=== PATIENT | female | born 1935 | race Caucasian/White ===

== ENCOUNTER 2017-07-28 14:15 | Outpatient (RCR) | payer SELFPAY | END 2017-07-29 23:59 | LOC: PR 14:15 | PROVIDERS: Family Provider Family Medicine; PCP Family Medicine; Visit Provider Internal Medicine Critical Care Medicine | DX: Z00.00 Encounter for general adult medical examination without abnormal findings (principal) ==

== ENCOUNTER 2017-08-28 14:15 | Outpatient (RCR) | payer SELFPAY | END 2017-08-28 23:59 | LOC: PR 14:15 | PROVIDERS: Family Provider Family Medicine; PCP Family Medicine; Visit Provider Internal Medicine Critical Care Medicine | DX: Z00.00 Encounter for general adult medical examination without abnormal findings (principal) ==

== ENCOUNTER 2017-09-28 06:00 | Outpatient (RCR) | payer SELFPAY | END 2017-09-28 23:59 | LOC: PR 06:00 | PROVIDERS: Family Provider Family Medicine; PCP Family Medicine; Visit Provider Internal Medicine Critical Care Medicine | DX: Z00.00 Encounter for general adult medical examination without abnormal findings (principal) ==

== ENCOUNTER → 2017-09-28 20:04 | Outpatient (CLI) | payer MEDICARE, SELFPAY | PROVIDERS: Family Provider Family Medicine; PCP Family Medicine; Visit Provider Nurse Practitioner Acute Care | DX: G47.19 Other hypersomnia (principal) | CPT/HCPCS: 95810; 95811 ==

== ENCOUNTER → 2017-10-27 08:41 | Outpatient (CLI) | payer MEDICARE, SELFPAY ==
[2017-10-27 10:52] LABS: ALB/GLOB Ratio 0.8 RATIO (0.9-2.4); AST(SGOT) 22 U/L (15-37); Alanine Aminotransfer ALT/SGPT 21 U/L (13-56); Albumin, Serum 3.2 g/dL (3.2-5.0); Alkaline Phosphatase 90 U/L (45-117); Anion Gap 6 (5-15); BUN 11 mg/dL (7-18); BUN/Creat Ratio 12.4 RATIO (10-20); Calcium,Total 8.8 mg/dL (8.5-10.1); Chloride 109 mmol/L (98-107); Cholesterol 187 mg/dL (200); Creatinine, Serum 0.89 mg/dL (0.55-1.02); EST Glomerular Filtration Rate 65 mL/min (>60); Est Glom Filt Rate - Afr Amer 79 mL/min (>60); Globulin 3.8 g/dL (2.2-4.2); Glucose 100 mg/dL (74-106); High Density Lipoprotein 62 mg/dL; Potassium 3.9 mmol/L (3.5-5.1); Sodium Level 144 mmol/L (136-145); Triglycerides 118 mg/dL; Very Low Density Lipoprotein 24 mg/dL (5-40)
[2017-10-27 10:56] LABS: Vitamin D,25 Hydroxy 46.3 ng/mL (29.95-100.01)
== END ==
PROVIDERS: Family Provider Family Medicine; PCP Family Medicine; Visit Provider Family Medicine
DX: E78.00 Pure hypercholesterolemia, unspecified (principal); E55.9 Vitamin D deficiency, unspecified
CPT/HCPCS: 36415; 80053; 80061; 82306

== ENCOUNTER 2017-10-27 14:15 | Outpatient (RCR) | payer MEDICARE, SELFPAY | END 2017-10-28 23:59 | LOC: PR 14:15 | PROVIDERS: Family Provider Family Medicine; PCP Family Medicine; Visit Provider Internal Medicine Critical Care Medicine | DX: Z00.00 Encounter for general adult medical examination without abnormal findings (principal); E78.00 Pure hypercholesterolemia, unspecified; E55.9 Vitamin D deficiency, unspecified | CPT/HCPCS: 36415; 80053; 80061; 82306 ==

== ENCOUNTER 2017-11-28 06:00 | Outpatient (RCR) | payer MEDICARE, SELFPAY | END 2017-11-28 23:59 | LOC: PR 06:00 | PROVIDERS: Family Provider Family Medicine; PCP Family Medicine; Visit Provider Internal Medicine Critical Care Medicine | DX: Z00.00 Encounter for general adult medical examination without abnormal findings (principal) ==

== ENCOUNTER → 2017-11-29 08:36 | Outpatient (CLI) | payer MEDICARE, SELFPAY ==
[2017-11-29 09:17] VITALS: PULSE 100; PULSE 103; PULSE 111; PULSE 115; PULSE 116; PULSE 117; PULSE 74; PULSE 78; O2SAT 84; O2SAT 89; O2SAT 90; O2SAT 92; O2SAT 97
--- NOTE | 2017-11-29 13:53 | WT_ITS ---
PSN 6 Minute Walk Test - 6 Minute Walk Test 6 Minute Walk Test: 6 Minute Walk Test PSN:6-Minute Walk Test Start: 11/29/17 09: 17 Freq: Status: Active Protocol: RESP.6MINW Document 11/29/17 09:17 SAÚL (Rec: 11/29/17 09:20 [id number]) 6 Minute Walk Test Date Performed 11/29/17 Time Performed 09:00 Height 5 ft 7 in Weight: 190 lb Weight in Pounds 190.[address]: Cornelius Beasley Assistive device used: None Pre-test Oxygen Delivery Method Room Air Pulse Ox (%) 92 Pulse Rate (60-100 beats/min) 74 Dyspnea Megan Scale (0-10) 0 Exertion Megan Scale (6-20) 6 1st minute Oxygen Delivery Method Room Air Pulse Ox (%) 84 Pulse Rate (60-100 beats/min) 100 2nd minute Oxygen Flow Rate (L/min) (L/min) 4 Oxygen Delivery Method Nasal Cannula Pulse Ox (%) 90 Pulse Rate (60-100 beats/min) 103 H 3rd minute Oxygen Flow Rate (L/min) (L/min) 4 Oxygen Delivery Method Nasal Cannula Pulse Ox (%) 90 Pulse Rate (60-100 beats/min) 111 H 4th minute Oxygen Flow Rate (L/min) (L/min) 4 Oxygen Delivery Method Nasal Cannula Pulse Ox (%) 90 Pulse Rate (60-100 beats/min) 115 H 5th minute Oxygen Flow Rate (L/min) (L/min) 4 Oxygen Delivery Method Nasal Cannula Pulse Ox (%) 89 Pulse Rate (60-100 beats/min) 116 H 6th minute Oxygen Flow Rate (L/min) (L/min) 4 Oxygen Delivery Method Nasal Cannula Pulse Ox (%) 90 Pulse Rate (60-100 beats/min) 117 H Dyspnea Megan Scale (0-10) 4 Exertion Megan Scale (6-20) 13 Post-test Oxygen Flow Rate (L/min) (L/min) 4 Oxygen Delivery Method Nasal Cannula Pulse Ox (%) 97 Pulse Rate (60-100 beats/min) 78 Full Laps Walked 16 Partial Lap, Number of Tiles Walked 28 Total Distance Walked (ft) 972 - Interpretation Interpretation: The patient ambulated 972 feet over the course of 6 minutes beginning on room air without assistive devices or breaks. Pretesting oxygen saturation was noted to be 92% on room air. With ambulation, the lanetet oxygen saturation was 84% at minute 1 of testing. 4 L/min of supplemental oxygen was applied and the patient was able to complete the remainder of the test while maintaining oxygen saturations at or above 88%. The patient did develop exertional tachycardia. This testing indicated evidence of significant exertional hypoxemia. - Recommendations Recommendations: 4 L/min of supplemental oxygen should be utilized with exertion.
== END ==
PROVIDERS: Family Provider Family Medicine; PCP Family Medicine; Visit Provider Nurse Practitioner Acute Care
DX: J96.11 Chronic respiratory failure with hypoxia (principal)
CPT/HCPCS: 94618

== ENCOUNTER 2017-12-29 14:15 | Outpatient (RCR) | payer SELFPAY | END 2017-12-29 23:59 | LOC: PR 14:15 | PROVIDERS: Family Provider Family Medicine; PCP Family Medicine; Visit Provider Internal Medicine Critical Care Medicine | DX: Z00.00 Encounter for general adult medical examination without abnormal findings (principal) ==

== ENCOUNTER 2018-01-22 14:15 | Outpatient (RCR) | payer SELFPAY | END 2018-01-28 23:59 | LOC: PR 14:15 | PROVIDERS: Family Provider Family Medicine; PCP Family Medicine; Visit Provider Internal Medicine Critical Care Medicine | DX: Z00.00 Encounter for general adult medical examination without abnormal findings (principal) ==

== ENCOUNTER 2018-01-29 09:21 | Outpatient (RCR) | payer SELFPAY | END 2018-02-28 23:59 | LOC: PR 09:21 | PROVIDERS: Family Provider Family Medicine; PCP Family Medicine; Referring Provider Internal Medicine Critical Care Medicine; Visit Provider Internal Medicine Critical Care Medicine | DX: Z00.00 Encounter for general adult medical examination without abnormal findings (principal) ==

== ENCOUNTER 2018-03-01 06:52 | Outpatient (RCR) | payer SELFPAY | END 2018-03-30 23:59 | LOC: PR 06:52 | PROVIDERS: Family Provider Family Medicine; PCP Family Medicine; Referring Provider Internal Medicine Critical Care Medicine; Visit Provider Internal Medicine Critical Care Medicine | DX: Z00.00 Encounter for general adult medical examination without abnormal findings (principal) ==

== ENCOUNTER 2018-04-30 14:15 | Outpatient (RCR) | payer SELFPAY ==
[2018-03-26 09:37] VITALS: BMI 32.5
[2018-04-02 09:47] VITALS: BMI 32.5
== END 2018-04-30 23:59 ==
LOC: PR 14:15
PROVIDERS: Family Provider Family Medicine; PCP Family Medicine; Referring Provider Internal Medicine Critical Care Medicine; Visit Provider Internal Medicine Critical Care Medicine
DX: Z00.00 Encounter for general adult medical examination without abnormal findings (principal)

== ENCOUNTER 2018-05-25 14:15 | Outpatient (RCR) | payer SELFPAY ==
[2018-04-02 09:47] VITALS: BMI 32.5
== END 2018-05-31 23:59 ==
LOC: PR 14:15
PROVIDERS: Family Provider Family Medicine; PCP Family Medicine; Visit Provider Internal Medicine Critical Care Medicine
DX: Z00.00 Encounter for general adult medical examination without abnormal findings (principal)

== ENCOUNTER 2018-06-04 08:26 | Outpatient (RCR) | payer SELFPAY ==
[2018-04-02 09:47] VITALS: BMI 32.5
== END 2018-06-28 23:59 ==
LOC: PR 08:26
PROVIDERS: Family Provider Family Medicine; PCP Family Medicine; Visit Provider Internal Medicine Critical Care Medicine
DX: Z00.00 Encounter for general adult medical examination without abnormal findings (principal)

== ENCOUNTER → 2018-06-25 12:00 | Outpatient (CLI) | payer MEDICARE, SELFPAY ==
[2018-06-19 09:39] VITALS: BMI 30.7
--- NOTE | 2018-06-25 | LES_PTH ---
PATIENT: MEHNAZ TURCIOS LOC: [facility] U#:[id number] AGE/SX: 89/F ROOM: RE06/25/[address]: Dr. Loy Esteves MD : 1935 BED: DIS: SPEC #: [id number] RECD: 06/25/18 17:47 STATUS: JAYCEE TONIE #: [id number] JUAN: 06/25/18 00:[address]: Loy Esteves DEPT: SURGICAL PATHOLOGY RECD BY: Tab Casas Tissues: Skin of scalp, NOS Procedures: Surgery Specimen Level IV HEADER OPERATION: Shave biopsy PRE-OP DIAGNOSIS: Right scapular lesion (history squamous cell) TISSUE SUBMITTED: Right scapular lesion MICROSCOPIC DIAGNOSIS Right scapular lesion, shave biopsy: Consistent with seborrheic keratosis with actinic keratosis-like features. Negative for malignancy. SJ:jes 06/27/18 MICROSCOPIC DESCRIPTION Slides are reviewed. GROSS DESCRIPTION Received in fixative is one container labeled with the patient's name and designated right scapular lesion. The specimen consists of a shave biopsy of hart-white skin measuring 1 x 1 cm and 0.1 cm in thickness. The skin surface is rough. The specimen is inked and submitted entirely in one cassette. It will be sectioned at the time of embedding. / SJ:jes 06/26/18 TC:5 [facility]: [id number]
== END ==
PROVIDERS: Family Provider Family Medicine; PCP Family Medicine; Referring Provider Family Medicine; Visit Provider Family Medicine
DX: L98.9 Disorder of the skin and subcutaneous tissue, unspecified (principal)
CPT/HCPCS: 88305

== ENCOUNTER 2018-06-29 12:43 | Outpatient (RCR) | payer SELFPAY ==
[2018-06-29 00:27] VITALS: BMI 32.5
== END 2018-07-29 23:59 ==
LOC: PR 12:43
PROVIDERS: Family Provider Family Medicine; PCP Family Medicine; Referring Provider Internal Medicine Critical Care Medicine; Visit Provider Internal Medicine Critical Care Medicine
DX: Z00.00 Encounter for general adult medical examination without abnormal findings (principal)

== ENCOUNTER → 2018-07-05 07:20 | Outpatient (CLI) | payer MEDICARE, SELFPAY ==
[2018-06-29 00:27] VITALS: BMI 32.5
[2018-07-05 10:08] LABS: Hematocrit 43.9 % (37-47); Hemoglobin 13.4 g/dl (12.0-15.0); Mean Corp Hgb Conc 30.5 g/gl (32-36); Mean Corpuscular Hgb 28.9 pg (27.0-32.0); Mean Corpuscular Volume 94.6 fL (81-99); Mean Platelet Vol. 10.8 fl (6.2-12.0); Platelet Count 260 K/mm3 (150-450); RBC Distribution Width CV 14.7 % (11.6-14.6); RBC Distribution Width SD 48.6 fl (35.1-43.9); Red Blood Count 4.64 M/mm3 (4.2-5.4); White Blood Count 5.8 K/mm3 (4.4-11.0)
[2018-07-05 10:13] LABS: Scan Indicated on CBC? Y/N NO
[2018-07-05 10:31] LABS: ALB/GLOB Ratio 0.9 RATIO (0.9-2.4); AST(SGOT) 22 U/L (15-37); Alanine Aminotransfer ALT/SGPT 20 U/L (13-56); Albumin, Serum 3.4 g/dL (3.2-5.0); Alkaline Phosphatase 108 U/L (45-117); Anion Gap 6 (5-15); BUN 14 mg/dL (7-18); BUN/Creat Ratio 15.2 RATIO (10-20); Calcium,Total 9.3 mg/dL (8.5-10.1); Chloride 105 mmol/L (98-107); Cholesterol 193 mg/dL (200); Creatinine, Serum 0.92 mg/dL (0.55-1.02); EST Glomerular Filtration Rate 62 mL/min (>60); Est Glom Filt Rate - Afr Amer 75 mL/min (>60); Globulin 3.8 g/dL (2.2-4.2); Glucose 94 mg/dL (74-106); High Density Lipoprotein 74 mg/dL; Protein, Total 7.2 g/dL (6.4-8.2); Sodium Level 140 mmol/L (136-145); Triglycerides 90 mg/dL; Very Low Density Lipoprotein 18 mg/dL (5-40); Vitamin D,25 Hydroxy 37.6 ng/mL (29.95-100.01)
== END ==
PROVIDERS: Family Provider Family Medicine; PCP Family Medicine; Referring Provider Family Medicine; Visit Provider Family Medicine
DX: E78.00 Pure hypercholesterolemia, unspecified (principal); E55.9 Vitamin D deficiency, unspecified
CPT/HCPCS: 36415; 80053; 80061; 82306; 85027

== ENCOUNTER 2018-07-30 07:08 | Outpatient (RCR) | payer SELFPAY ==
[2018-07-30 00:28] VITALS: BMI 30.7
== END 2018-08-28 23:59 ==
LOC: PR 07:08
PROVIDERS: Family Provider Family Medicine; PCP Family Medicine; Referring Provider Internal Medicine Critical Care Medicine; Visit Provider Internal Medicine Critical Care Medicine
DX: Z00.00 Encounter for general adult medical examination without abnormal findings (principal)

== ENCOUNTER 2018-08-29 07:08 | Outpatient (RCR) | payer SELFPAY | END 2018-09-28 23:59 | LOC: PR 07:08 | PROVIDERS: Family Provider Family Medicine; PCP Family Medicine; Referring Provider Internal Medicine Critical Care Medicine; Visit Provider Internal Medicine Critical Care Medicine | DX: Z00.00 Encounter for general adult medical examination without abnormal findings (principal) ==

== ENCOUNTER 2018-10-01 07:22 | Outpatient (RCR) | payer SELFPAY | END 2018-10-28 23:59 | LOC: PR 07:22 | PROVIDERS: Family Provider Family Medicine; PCP Family Medicine; Referring Provider Internal Medicine Critical Care Medicine; Visit Provider Internal Medicine Critical Care Medicine | DX: Z00.00 Encounter for general adult medical examination without abnormal findings (principal) ==

== ENCOUNTER → 2018-10-19 07:30 | Outpatient (CLI) | payer MEDICARE, SELFPAY ==
[2018-10-19 10:40] LABS: Ferritin 42 ng/mL (8-252); Iron 62 ug/dL (50-170)
[2018-10-19 11:10] LABS: Vitamin B12 599 pg/mL (211-911)
== END ==
PROVIDERS: Family Provider Family Medicine; PCP Family Medicine; Referring Provider Family Medicine; Visit Provider Family Medicine
DX: D64.9 Anemia, unspecified (principal)
CPT/HCPCS: 36415; 82607; 82728; 83540

== ENCOUNTER → 2018-10-25 11:53 | Outpatient (CLI) | payer MEDICARE, SELFPAY ==
[2018-10-25 10:47] VITALS: BMI 30.7
--- NOTE | 2018-10-25 12:00 | RAD_ITS ---
STUDY: X-RAY CHEST REASON FOR EXAM: Female, 83 years old. TECHNIQUE: 2 views COMPARISON: September 02, 2015 FINDINGS: The lungs are clear and hyperinflated. There is no demonstrated pleural abnormality. No pneumothorax Normal size heart. Normal mediastinum and jr. Normal visualized pulmonary arteries. Mild tortuosity of the thoracic aorta Normal visualized thoracic spine. Normal visualized ribs, clavicles, and shoulders. There is no demonstrated abnormality of the visualized soft tissue structures of the upper abdomen. RAD/Chest PA and Lateral IMPRESSION: Negative for intrathoracic active disease with hyperinflated lungs. Electronically Signed: Adrianna Moon, at 13:09 EDT Tel , Service support ,
== END ==
PROVIDERS: Family Provider Family Medicine; PCP Family Medicine; Referring Provider Nurse Practitioner Acute Care; Visit Provider Nurse Practitioner Acute Care
DX: J44.9 Chronic obstructive pulmonary disease, unspecified (principal)
CPT/HCPCS: 71046

== ENCOUNTER → 2018-10-30 08:49 | Outpatient (CLI) | payer MEDICARE, SELFPAY ==
[2018-10-25 10:47] VITALS: BMI 30.7
--- NOTE | 2018-10-30 13:04 | PFT ---
INTRODUCTION: The patient is an 83-year-old female that presents for pulmonary function studies secondary to a diagnosis of COPD. Respiratory therapy reports good patient effort. Bronchodilators were used during testing. INTERPRETATION: Forced expiration spirometry demonstrates the presence of a severe large airways obstructive ventilatory defect. There was a partial, albeit nonsignificant, response to aerosolized bronchodilators. Spirograms are of good quality and do not plateau indicating slow emptying of the lungs. Body plus tomography was performed and revealed an elevated TLC and RV, indicative of underlying hyperinflation and air trapping. Diffusing capacity by single breath CO is reduced at 39% of predicted. IMPRESSION: Irreversible severe large airways obstructive ventilatory defect with associated hyperinflation, air trapping and symmetric reduction in diffusing capacity.
== END ==
PROVIDERS: Family Provider Family Medicine; PCP Family Medicine; Referring Provider Nurse Practitioner Acute Care; Visit Provider Nurse Practitioner Acute Care
DX: J44.9 Chronic obstructive pulmonary disease, unspecified (principal)
CPT/HCPCS: 94060; 94726; 94729

== ENCOUNTER → 2018-11-20 08:13 | Outpatient (CLI) | payer MEDICARE, SELFPAY ==
[2018-10-25 10:47] VITALS: BMI 30.7
[2018-11-20 10:40] VITALS: PULSE 100; PULSE 107; PULSE 110; PULSE 117; PULSE 119; PULSE 80; PULSE 95; O2SAT 88; O2SAT 91; O2SAT 93; O2SAT 97
--- NOTE | 2018-11-20 10:50 | CPS ---
She came in on 4 LPM O2 took off and started on room Air but at one min SPO2 88% put on 4 LPM the rest of test. FR.
--- NOTE | 2018-11-20 13:12 | PCM.PSN.6M ---
PSN 6 Minute Walk Test - 6 Minute Walk Test 6 Minute Walk Test: 6 Minute Walk Test PSN:6-Minute Walk Test Start: 11/20/18 10:39 Freq: Status: Active Protocol: RESP.6MINW Document 11/20/18 10:40 FR (Rec: 11/20/18 10:52 FR [id number]) 6 Minute Walk Test Date Performed 11/20/18 Time Performed 09:00 Height 5 ft 7 in Weight: 84.822 kg Weight in Pounds 187.[address]: Asif Assistive device used: None Pre-test Oxygen Delivery Method Room Air Pulse Ox (%) 93 Pulse Rate (60-100 beats/min) 80 Dyspnea Megan Scale (0-10) 0 Exertion Megan Scale (6-20) 6 1st minute Oxygen Delivery Method Room Air Pulse Ox (%) 88 Pulse Rate (60-100 beats/min) 107 H 2nd minute Oxygen Flow Rate (L/min) (L/min) 4 Oxygen Delivery Method Nasal Cannula Pulse Ox (%) 93 Pulse Rate (60-100 beats/min) 100 3rd minute Oxygen Flow Rate (L/min) (L/min) 4 Oxygen Delivery Method Nasal Cannula Pulse Ox (%) 91 Pulse Rate (60-100 beats/min) 110 H 4th minute Oxygen Flow Rate (L/min) (L/min) 4 Oxygen Delivery Method Nasal Cannula Pulse Ox (%) 91 Pulse Rate (60-100 beats/min) 117 H 5th minute Oxygen Flow Rate (L/min) (L/min) 4 Oxygen Delivery Method Nasal Cannula Pulse Ox (%) 91 Pulse Rate (60-100 beats/min) 119 H Number of Rests Taken 1 6th minute Oxygen Flow Rate (L/min) (L/min) 4 Oxygen Delivery Method Nasal Cannula Pulse Ox (%) 91 Pulse Rate (60-100 beats/min) 117 H Dyspnea Megan Scale (0-10) 8 Exertion Megan Scale (6-20) 14 Post-test Oxygen Flow Rate (L/min) (L/min) 4 Oxygen Delivery Method Nasal Cannula Pulse Ox (%) 97 Pulse Rate (60-100 beats/min) 95 Full Laps Walked 13 Partial Lap, Number of Tiles Walked 49 Total Distance Walked (ft) 816 11/20/18 10:50 Cardiopulmonary Services by Jessica Asencio She came in on 4 LPM O2 took off and started on room Air but at one min SPO2 88% put on 4 LPM the rest of test. FR. Initialized on 11/20/18 10:50 - END OF NOTE - Interpretation Interpretation: The patient was noted to be 93% on room air. However, patient desaturated in the first minute to 88%. Patient was placed on 4 L nasal cannula and was able to maintain saturations in acceptable range throughout ambulation. Patient did have a peak heart rate of 119 bpm. In total, patient was able to ambulate 816 feet over the course of 6 minutes with one break and no assistive devices. These findings are consistent with a respiratory limitation exercise tolerance. - Recommendations Recommendations: The patient requires no supplemental oxygen at rest, but should be using 4 L nasal cannula oxygen with any exertion.
== END ==
PROVIDERS: Family Provider Family Medicine; PCP Family Medicine; Referring Provider Nurse Practitioner Acute Care; Visit Provider Nurse Practitioner Acute Care
DX: J44.9 Chronic obstructive pulmonary disease, unspecified (principal)
CPT/HCPCS: 94618

== ENCOUNTER 2019-01-29 06:34 | Outpatient (RCR) | payer SELFPAY ==
[2018-10-25 10:47] VITALS: BMI 30.7
[2018-11-23 11:02] VITALS: BMI 30.7
== END 2019-02-28 23:59 ==
LOC: PR 06:34
PROVIDERS: Family Provider Family Medicine; PCP Family Medicine; Referring Provider Internal Medicine Critical Care Medicine; Visit Provider Internal Medicine Critical Care Medicine
DX: Z00.00 Encounter for general adult medical examination without abnormal findings (principal)

== ENCOUNTER → 2019-02-11 07:42 | Outpatient (CLI) | payer MEDICARE, SELFPAY ==
[2018-11-23 11:02] VITALS: BMI 30.7
[2019-02-11 10:37] LABS: Anion Gap 5 (5-15); BUN 15 mg/dL (7-18); BUN/Creat Ratio 16.4 RATIO (10-20); Calcium,Total 9.1 mg/dL (8.5-10.1); Chloride 107 mmol/L (98-107); Creatinine, Serum 0.92 mg/dL (0.55-1.02); EST Glomerular Filtration Rate 62 mL/min (>60); Est Glom Filt Rate - Afr Amer 76 mL/min (>60); Glucose 108 mg/dL (74-106); Potassium 3.9 mmol/L (3.5-5.1); Sodium Level 141 mmol/L (136-145)
[2019-02-11 10:41] LABS: Vitamin D,25 Hydroxy 39.5 ng/mL (29.95-100.01)
== END ==
PROVIDERS: Family Provider Family Medicine; PCP Family Medicine; Referring Provider Family Medicine; Visit Provider Family Medicine
DX: E78.00 Pure hypercholesterolemia, unspecified (principal); E55.9 Vitamin D deficiency, unspecified
CPT/HCPCS: 36415; 80048; 82306

== ENCOUNTER → 2019-02-18 11:29 | Outpatient (CLI) | payer MEDICARE, SELFPAY ==
[2018-11-23 11:02] VITALS: BMI 30.7
== END ==
PROVIDERS: Family Provider Family Medicine; PCP Family Medicine; Referring Provider Family Medicine; Visit Provider Family Medicine
DX: R35.0 Frequency of micturition (principal)
CPT/HCPCS: 87077; 87086; 87088; 87186

== ENCOUNTER → 2019-06-27 09:43 | Outpatient (CLI) | payer MEDICARE, SELFPAY ==
[2019-02-27 09:46] VITALS: BMI 29.7
[2019-06-27 12:27] LABS: Hematocrit 46.1 % (37-47); Hemoglobin 14.4 g/dL (12.0-15.0); Mean Corp Hgb Conc 31.2 g/dL (32-36); Mean Corpuscular Hgb 29.5 pg (27.0-32.0); Mean Corpuscular Volume 94.5 fL (81-99); Mean Platelet Vol. 10.6 fl (6.2-12.0); Platelet Count 273 K/mm3 (150-450); RBC Distribution Width CV 14.2 % (11.6-14.6); Red Blood Count 4.88 M/mm3 (4.2-5.4); White Blood Count 5.8 K/mm3 (4.4-11.0)
[2019-06-27 12:57] LABS: Vitamin D,25 Hydroxy 48.3 ng/mL
[2019-06-27 13:21] LABS: ALB/GLOB Ratio 0.8 RATIO (0.9-2.4); AST(SGOT) 18 U/L (15-37); Alanine Aminotransfer ALT/SGPT 23 U/L (13-56); Albumin, Serum 3.5 g/dL (3.2-5.0); Alkaline Phosphatase 89 U/L (45-117); Anion Gap 6 (5-15); BUN 15 mg/dL (7-18); BUN/Creat Ratio 14.6 RATIO (10-20); CRP 4.15 mg/L (0.0-3.0); Calcium,Total 9.4 mg/dL (8.5-10.1); Chloride 104 mmol/L (98-107); Cholesterol 217 mg/dL (200); Creatinine, Serum 1.03 mg/dL (0.55-1.02); EST Glomerular Filtration Rate 55 mL/min (>60); Est Glom Filt Rate - Afr Amer 66 mL/min (>60); Globulin 4.2 g/dL (2.2-4.2); Glucose 98 mg/dL (74-106); High Density Lipoprotein 82 mg/dL; Potassium 4.1 mmol/L (3.5-5.1); Protein, Total 7.7 g/dL (6.4-8.2); Sodium Level 139 mmol/L (136-145); Thyroid Stim Hormone (TSH) 4.56 uIU/mL (0.358-3.74); Triglycerides 93 mg/dL; Very Low Density Lipoprotein 19 mg/dL (5-40)
[2019-06-28 12:11] LABS: Free T3 2.8 pg/mL (2.18-3.98); T4 Free Direct 0.87 ng/dL (0.76-1.46)
== END ==
PROVIDERS: PCP Family Medicine; Referring Provider Family Medicine; Visit Provider Family Medicine
DX: D64.9 Anemia, unspecified (principal); E55.9 Vitamin D deficiency, unspecified; E78.00 Pure hypercholesterolemia, unspecified; R79.82 Elevated C-reactive protein (CRP); R73.01 Impaired fasting glucose
CPT/HCPCS: 36415; 80053; 80061; 82306; 84439; 84443; 84481; 85027; 86140

== ENCOUNTER → 2019-10-18 08:36 | Outpatient (CLI) | payer MEDICARE, SELFPAY ==
[2019-08-21 09:25] VITALS: BMI 29.7
== END ==
PROVIDERS: PCP Family Medicine; Visit Provider Family Medicine
DX: Z00.00 Encounter for general adult medical examination without abnormal findings (principal)

== ENCOUNTER → 2019-10-24 09:56 | Outpatient (CLI) | payer MEDICARE, SELFPAY ==
[2019-08-21 09:25] VITALS: BMI 29.7
[2019-10-24 12:52] LABS: T4 Free Direct 0.83 ng/dL (0.76-1.46); Thyroid Stim Hormone (TSH) 5.29 uIU/mL (0.358-3.74)
== END ==
PROVIDERS: PCP Family Medicine; Referring Provider Family Medicine; Visit Provider Family Medicine
DX: R79.89 Other specified abnormal findings of blood chemistry (principal); E78.00 Pure hypercholesterolemia, unspecified
CPT/HCPCS: 36415; 84439; 84443

== ENCOUNTER → 2019-11-25 09:42 | Outpatient (CLI) | payer OTHER, SELFPAY ==
[2019-08-21 09:25] VITALS: BMI 29.7
--- NOTE | 2019-11-25 09:50 | RAD_ITS ---
STUDY: X-RAY - LEFT SHOULDER REASON FOR EXAM: Left rotator cuff strain. TECHNIQUE: 4 view(s) of the shoulder. COMPARISON: None. FINDINGS: Normal glenohumeral articulation. There is acromioclavicular arthrosis. Normal acromion. Normal humeral head and visualized proximal humerus. The soft tissue structures are unremarkable. Normal visualized pulmonary apex. RAD/Shoulder min 2 Views IMPRESSION: Acromioclavicular arthrosis. Electronically Signed: Jovan Brian MD at 13:22 EDT Tel , Service support ,
--- NOTE | 2019-11-25 09:50 | RAD_ITS ---
STUDY: X-RAY - CERVICAL SPINE REASON FOR EXAM: Female, 84 years old. Left rotator cuff strain. TECHNIQUE: 5 view(s) of the cervical spine were obtained. COMPARISON: None FINDINGS: There are degenerative changes of the anterior atlantoaxial articulation. Normal odontoid process. Normal cervical lordosis. There is multi-level endplate spondylosis. There is multi-level degenerative disc disease with multilevel disc space narrowing. There is multilevel neural foraminal narrowing bilaterally. There is no evidence of acute fracture or loss of vertebral axial height. There is maintenance of normal alignment. The soft tissue structures are unremarkable. RAD/Cerv Spine 4 or 5 Views IMPRESSION: Degenerative changes of the cervical spine without acute fracture or subluxation. Electronically Signed: Perez Perez DO at 17:26 EDT Tel [phone], Service support ,
== END ==
PROVIDERS: PCP Family Medicine; Referring Provider Family Medicine; Visit Provider Family Medicine
DX: S46.012A Strain of muscle(s) and tendon(s) of the rotator cuff of left shoulder, initial encounter (principal)
CPT/HCPCS: 72050; 73030

== ENCOUNTER → 2019-11-27 10:46 | Outpatient (CLI) | payer MEDICARE, SELFPAY ==
[2019-08-21 09:25] VITALS: BMI 29.7
[2019-11-27 11:34] VITALS: PULSE 102; PULSE 103; PULSE 104; PULSE 107; PULSE 111; PULSE 80; PULSE 90; PULSE 95; O2SAT 86; O2SAT 92; O2SAT 93; O2SAT 95; O2SAT 96
--- NOTE | 2019-11-27 11:36 | CPS ---
Patient wears 4-5 lpm oxygen at home, pulse dose and continuous. Patient stated she does not always need it when she is sitting. SpO2 93% on room air for 10 minutes while sitting. Started testing on room air. SpO2 at 1st minute was 86%. Patient placed on home O2 tank at 4 lpm pulse dose. Patient recovered quickly to 92%. Patient walked the remainder of the test without breaks.
--- NOTE | 2019-11-28 12:20 | PCM.PSN.6M ---
PSN 6 Minute Walk Test - 6 Minute Walk Test 6 Minute Walk Test: 6 Minute Walk Test PSN:6-Minute Walk Test Start: 11/27/19 11:33 Freq: Status: Active Protocol: RESP.6MINW Document 11/27/19 11:34 SAÚL (Rec: 11/27/19 11:39 [id number]) 6 Minute Walk Test Date Performed 11/27/19 Time Performed 11:00 Height 5 ft 7 in Weight: 177 lb Weight in Pounds 177.[address]: Cornelius Beasley Assistive device used: None Pre-test Oxygen Delivery Method Room Air Pulse Ox (%) 93 Pulse Rate (60-100 beats/min) 80 Dyspnea Megan Scale (0-10) 0 Exertion Megan Scale (6-20) 6 1st minute Oxygen Delivery Method Room Air Pulse Ox (%) 86 Pulse Rate (60-100 beats/min) 102 H 2nd minute Oxygen Flow Rate (L/min) (L/min) 4 Oxygen Delivery Method Nasal Cannula Pulse Ox (%) 95 Pulse Rate (60-100 beats/min) 95 3rd minute Oxygen Flow Rate (L/min) (L/min) 4 Oxygen Delivery Method Nasal Cannula Pulse Ox (%) 93 Pulse Rate (60-100 beats/min) 103 H 4th minute Oxygen Flow Rate (L/min) (L/min) 4 Oxygen Delivery Method Nasal Cannula Pulse Ox (%) 93 Pulse Rate (60-100 beats/min) 104 H 5th minute Oxygen Flow Rate (L/min) (L/min) 4 Oxygen Delivery Method Nasal Cannula Pulse Ox (%) 92 Pulse Rate (60-100 beats/min) 107 H 6th minute Oxygen Flow Rate (L/min) (L/min) 4 Oxygen Delivery Method Nasal Cannula Pulse Ox (%) 92 Pulse Rate (60-100 beats/min) 111 H Dyspnea Megan Scale (0-10) 4 Exertion Megan Scale (6-20) 14 Post-test Oxygen Flow Rate (L/min) (L/min) 4 Oxygen Delivery Method Nasal Cannula Pulse Ox (%) 96 Pulse Rate (60-100 beats/min) 90 Full Laps Walked 14 Partial Lap, Number of Tiles Walked 20 Total Distance Walked (ft) 846 11/27/19 11:36 Cardiopulmonary Services by Cris Gentile Patient wears 4-5 lpm oxygen at home, pulse dose and continuous. Patient stated she does not always need it when she is sitting. SpO2 93% on room air for 10 minutes while sitting. Started testing on room air. SpO2 at 1st minute was 86%. Patient placed on home O2 tank at 4 lpm pulse dose. Patient recovered quickly to 92%. Patient walked the remainder of the test without breaks. Initialized on 11/27/19 11:36 - END OF NOTE - Interpretation Interpretation: The patient ambulated 846 feet over the course of 6 minutes beginning on room air without assistive devices or breaks. Pretesting oxygen saturation was noted to be 93% on room air. With ambulation, the lanette oxygen saturation was 86%. The patient was placed on 4 L/min of pulse dose supplemental oxygen. She was able to complete the remainder of the test while maintaining appropriate oxygen saturations. - Recommendations Recommendations: 4 L/min of pulse dose supplemental oxygen should be utilized with exertion.
== END ==
PROVIDERS: PCP Family Medicine; Referring Provider Internal Medicine Critical Care Medicine; Visit Provider Internal Medicine Critical Care Medicine
DX: J96.11 Chronic respiratory failure with hypoxia (principal); J44.9 Chronic obstructive pulmonary disease, unspecified
CPT/HCPCS: 94618

== ENCOUNTER 2019-12-26 11:00 | Outpatient (RCR) | payer MEDICARE, SELFPAY ==
[2019-08-21 09:25] VITALS: BMI 29.7
--- NOTE | 2019-11-29 08:31 | HP.PTEVAL_ITS ---
Patient's Visit Information MEHNAZ TURCIOS is a 84 year old F referred to Physical Therapy by Dr. 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 Date of Evaluation: 11/29/19 Physical Therapist: Derian Martinez, PT, Cert MDT, OCS - Visit Plan Frequency: 2x /Week Duration: 4 Weeks Plan: PT INTERVENTIONS CERVICAL ROM/POSTURAL EX'S,MODALDITIES,MANAUL THERAPY CRVICAL TRACTION/STM - Subjective This 84 y/o female presents to physical therapy with cervical DDD with symptoms in left arm. Patient as symptoms in neck and arm for 2months . Patient initally seen DR did some ex's ,but conts pin/needles and parathesia arms to fingers thumb and and 1st and fingers. Patient had x-rays showed DDD. Aggraveting factors standing ,uses arm occassionally lay down. Alleviating factors exercise and MEDS. Patient symptoms affects sleeping. Patient unable to sleep. Patient denies ROY/dizziness/tinnitus. Patient condition afffects ADL's and housework tasks.Symptoms affect QOL. Patient uses 4 L02 continous. SOCAIL: . VOCATION: retired - Pain Bilateral Neck Pain Intensity (Out of 10): 3 Pain Intensity Range: 10 - Objective POSTURE: foward head rounded shoulders. NEURO: c/o parathesia/tingling C5- 6,reflexes C5-6-7 1/. PALPATION: tender left UT/levator/scalanes. AROM: BUE WFL. MMT: 4/5 ,shoulder 4-/5. CERVICAL ROM: cervical ROM rotation mod loss,lateral flexion mod loss,extension mod loss,flexion min loss - Special Tests C/S Radiculapathy - Left Upper limb tension test: Negative C/S Radiculapathy - Right Upper limb tension test: Negative C/S Radiculapathy - Left Spurlings: Positive C/S Radiculapathy - Right Spurlings: Positive C/S Radiculapathy - Left Cervical distraction: Negative C/S Radiculapathy - Right Cervical distraction: Negative - Goals Goal 1:: Patient to be I with HEP Goal Time Frame: 4-6 Weeks Goal 2:: Patient to decrease symptoms in arm by 50% or > to improve function. Goal Time Frame: 4-6 Weeks Goal 3:: Patient to improve cervical ROM function of recovery Goal Time Frame: 4-6 Weeks Goal 4:: Patient improve neck owestry score by 5 points or> to improve QOL. 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 in with parathesia tingling with decrease ROM cervical spine,decrease sleep,ADLS thus benifit from skilled PT Rehabilitation Potential: Good - Anticipated Interventions Patient/Client Instruction: Educate patient on: Condition, Plan of Care For the Purpose of:: To decrease pain, To increase ROM, To improve muscle performance and motor function, To improve ability to perform ADL's, To increase tolerance to activity/condition/position, To improve ability of physical actions for home/community/work/leisure, To improve health of tissue, To decrease soft tissue restriction, To increase flexibility/ROM, To improve ability to perform tasks related to life management Therapeutic Exercise to Include: Strength training, Postural training, Flexibilty training, Active ROM For the Purpose of:: To decrease pain, To increase ROM, To improve muscle performance and motor function, To improve ability to perform ADL's, To increase tolerance to activity/condition/position, To decrease level of supervision to perform tasks, To improve health of tissue, To decrease soft tissue restriction, To increase flexibility/ROM, To improve ability to perform tasks related to life management TENS: Yes IF ES: Yes Cryotherapy (ice pack, ice massage): Yes Thermo therapy (hot pack): Yes Ultrasound (thermal/non thermal): Yes For the Purpose of:: To decrease pain, To decrease swelling/inflammation, To improve nutrient delivery to tissue, To increase oxygenation perfusion, To improve health of tissue, To decrease soft tissue restriction Thank you for the opportunity to evaluate your patient. For Medicare and Medicare HMO plans, please review the plan of care and approve it. It will need to be FAXED BACK to us at [phone] for Medicare purposes. For Medicare only, by signing this I certify the plan of care. Please let me know if there are questions or concerns regarding this plan of care. Physician Signature: Date:
--- NOTE | 2019-12-26 11:35 | HP.PTDCSUM ---
It has been my pleasure to treat MEHNAZ TURCIOS referred by Dr. Sarwat Esteves MD, with the diagnosis of CERVICAL DDD AND PARATHESIA LEFT ARM C5 for a total of 9 visit(s). Discharge Date: 12/26/19 Please see the following information for a summary of their discharge status. Subjective: Doing well..Return to all ADL'S. No symptoms in arms with increase with ROM with improvced flexablity Bilateral Neck Pain Intensity (Out of 10): 0 % Improvement: 90 Objective/Function: CERVICAL ROM: FLEXION /ROTATION/LF MIN LOSS. MMT: 4/5 EXCEPT SHOULDERS 4-/5. SPURLING - to left Goal 1:: Patient to be I with HEP Goal Progress: Goal Met Goal 2:: Patient to decrease symptoms in arm by 50% or > to improve function. Goal Progress: Goal Met Goal 3:: Patient to improve cervical ROM function of recovery Goal Progress: Goal Met Goal 4:: Patient improve neck owestry score by 5 points or> to improve QOL. Goal Progress: Goal Met Plan: D/C TO HEP Discharge Comments: HEP If there are questions or concerns regarding this patient's physical therapy, please feel free to call me at [phone]. Thank you for the referral of this patient. Sincerely, Derian Martinez PT, Cert MDT, OCS
== END 2019-12-26 19:00 | disposition home or self-care (01) ==
LOC: PT 11:00
PROVIDERS: PCP Family Medicine; Referring Provider Family Medicine; Visit Provider Family Medicine
DX: M50.30 Other cervical disc degeneration, unspecified cervical region (principal)
CPT/HCPCS: 97035; 97110; 97140; 97162

== ENCOUNTER → 2020-02-10 11:32 | Outpatient (CLI) | payer MEDICARE, SELFPAY ==
[2019-08-21 09:25] VITALS: BMI 29.7
[2020-02-10 15:36] LABS: T4 Free Direct 0.92 ng/dL (0.76-1.46); Thyroid Stim Hormone (TSH) 3.47 uIU/mL (0.358-3.74)
== END ==
PROVIDERS: PCP Family Medicine; Visit Provider Family Medicine
DX: R79.89 Other specified abnormal findings of blood chemistry (principal); D64.9 Anemia, unspecified
CPT/HCPCS: 36415; 84439; 84443

== ENCOUNTER 2020-05-28 15:10 | Outpatient (RCR) | payer MEDICARE, SELFPAY ==
[2020-02-13 10:51] VITALS: BMI 27.4
== END 2020-05-28 23:59 ==
LOC: IMMUN 15:10
PROVIDERS: PCP Family Medicine; Visit Provider Family Medicine
DX: Z23 Encounter for immunization (principal)
CPT/HCPCS: 0011A; 0012A; 91301

== ENCOUNTER → 2020-08-04 09:48 | Outpatient (CLI) | payer MEDICARE, SELFPAY ==
[2020-02-13 10:51] VITALS: BMI 27.4
[2020-08-04 12:10] LABS: Hematocrit 44.8 % (37-47); Hemoglobin 13.7 g/dL (12.0-15.0); Mean Corp Hgb Conc 30.6 g/dL (32-36); Mean Corpuscular Hgb 29.1 pg (27.0-32.0); Mean Corpuscular Volume 95.3 fL (81-99); Mean Platelet Vol. 10.8 fl (6.2-12.0); Platelet Count 288 K/mm3 (150-450); RBC Distribution Width CV 14.1 % (11.6-14.6); RBC Distribution Width SD 49.7 fl (35.1-43.9); White Blood Count 7.7 K/mm3 (4.4-11.0)
[2020-08-04 12:23] LABS: Vitamin D,25 Hydroxy 33.2 ng/mL
[2020-08-04 12:36] LABS: ALB/GLOB Ratio 0.8 RATIO (0.9-2.4); AST(SGOT) 21 U/L (15-37); Alanine Aminotransfer ALT/SGPT 24 U/L (13-56); Albumin, Serum 3.6 g/dL (3.2-5.0); Alkaline Phosphatase 92 U/L (45-117); Anion Gap 2 (5-15); BUN 21 mg/dL (7-18); BUN/Creat Ratio 23.3 RATIO (10-20); Calcium,Total 9.7 mg/dL (8.5-10.1); Chloride 106 mmol/L (98-107); EST Glomerular Filtration Rate 64 mL/min (>60); Est Glom Filt Rate - Afr Amer 77 mL/min (>60); Globulin 4.3 g/dL (2.2-4.2); Glucose 90 mg/dL (74-106); Potassium 3.9 mmol/L (3.5-5.1); Protein, Total 7.9 g/dL (6.4-8.2); Sodium Level 138 mmol/L (136-145); T4 Free Direct 0.86 ng/dL (0.76-1.46); Thyroid Stim Hormone (TSH) 4.74 uIU/mL (0.358-3.74)
== END ==
PROVIDERS: PCP Family Medicine; Visit Provider Family Medicine
DX: J44.9 Chronic obstructive pulmonary disease, unspecified (principal); K21.9 Gastro-esophageal reflux disease without esophagitis; L40.9 Psoriasis, unspecified; R79.89 Other specified abnormal findings of blood chemistry; E78.00 Pure hypercholesterolemia, unspecified; E55.9 Vitamin D deficiency, unspecified
CPT/HCPCS: 36415; 80053; 82306; 84439; 84443; 85027

== ENCOUNTER → 2020-09-17 12:24 | Outpatient (CLI) | payer MEDICARE, SELFPAY ==
[2020-02-13 10:51] VITALS: BMI 27.4
[2020-09-17 15:05] LABS: Absolute Lymphocyte Count 1.89 X10^3/uL (0.83-4.51); Absolute Neutrophil Count 3.5 X10^3/uL (2.0-7.7); Basophil# 0.07 X10^3/uL; Basophil% 1.1 % (0-1); Eosinophil# 0.17 X10^3/uL; Eosinophils% 2.7 % (0-5); Hemoglobin 13.7 g/dL (12.0-15.0); Lymphocyte # 1.89 X10^3/ul (0.83-4.51); Lymphocyte % 30.5 % (19-41); Mean Corp Hgb Conc 31.1 g/dL (32-36); Mean Corpuscular Hgb 29.7 pg (27.0-32.0); Mean Corpuscular Volume 95.4 fL (81-99); Mean Platelet Vol. 10.6 fl (6.2-12.0); Monocyte# 0.58 X10^3/uL; Monocyte% 9.4 % (0-10); NRBC Flagged by Analyzer 0 % (0-5); Neutrophil # 3.47 X10^3/uL (2.7-7.7); Platelet Count 293 K/mm3 (150-450); RBC Distribution Width CV 13.9 % (11.6-14.6); RBC Distribution Width SD 48.7 fl (35.1-43.9); Red Blood Count 4.61 M/mm3 (4.2-5.4); White Blood Count 6.2 K/mm3 (4.4-11.0)
[2020-09-17 15:36] LABS: Erythrocyte Sedimentation Rate 27 mm/hr (0-30)
[2020-09-17 16:12] LABS: Anion Gap 6 (5-15); BUN 13 mg/dL (7-18); BUN/Creat Ratio 14.3 RATIO (10-20); Calcium,Total 9.4 mg/dL (8.5-10.1); Chloride 107 mmol/L (98-107); Creatinine, Serum 0.91 mg/dL (0.55-1.02); EST Glomerular Filtration Rate 63 mL/min (>60); Est Glom Filt Rate - Afr Amer 76 mL/min (>60); Glucose 83 mg/dL (74-106); Potassium 3.6 mmol/L (3.5-5.1); Sodium Level 141 mmol/L (136-145); Thyroid Stim Hormone (TSH) 3.18 uIU/mL (0.358-3.74)
[2020-09-20 12:07] LABS: SJOGREN'S Anti-SS-A test < 0.2 AI (0.0-0.9); SJOGREN'S Anti-SS-B test < 0.2 AI (0.0-0.9)
[2020-09-21 07:41] LABS: ANTINUCLEAR ANTIBODIES DIRECT Negative (Negative)
== END ==
PROVIDERS: PCP Family Medicine; Referring Provider Family Medicine; Visit Provider Family Medicine
DX: R68.2 Dry mouth, unspecified (principal); E78.00 Pure hypercholesterolemia, unspecified
CPT/HCPCS: 36415; 80048; 84443; 85025; 85652; 86038; 86235; 86431

== ENCOUNTER → 2021-04-06 11:00 | Outpatient (CLI) | payer MEDICARE, SELFPAY ==
[2021-04-06 11:15] VITALS: PULSE 100; PULSE 88; PULSE 90; PULSE 91; PULSE 98; PULSE 99; O2SAT 92; O2SAT 94; O2SAT 96; O2SAT 97; O2SAT 98
--- NOTE | 2021-04-06 13:43 | PCM.PSN.6M ---
PSN 6 Minute Walk Test 6 Minute Walk Test 6 Minute Walk Test: 6 Minute Walk Test PSN:6-Minute Walk Test Start: 04/06/21 11:24 Freq: Status: Active Protocol: RESP.6MINW Document 04/06/21 11:15 JAVI (Rec: 04/06/21 11:29 [id number]) 6 Minute Walk Test Date Performed 04/06/21 Time Performed 11:15 Height 5 ft 7 in Weight: 79.832 kg Weight in Pounds 176.[address]: Cornelius Beasley Assistive device used: Walker Pre-test Oxygen Delivery Method Room Air Pulse Ox (%) 97 Pulse Rate (60-100 beats/min) 91 Dyspnea Megan Scale (0-10) 0 Exertion Megan Scale (6-20) 6 1st minute Oxygen Flow Rate (L/min) (L/min) 4 Oxygen Delivery Method Nasal Cannula Pulse Ox (%) 92 Pulse Rate (60-100 beats/min) 100 2nd minute Oxygen Flow Rate (L/min) (L/min) 4 Oxygen Delivery Method Nasal Cannula Pulse Ox (%) 94 Pulse Rate (60-100 beats/min) 90 3rd minute Oxygen Flow Rate (L/min) (L/min) 4 Oxygen Delivery Method Nasal Cannula Pulse Ox (%) 97 Pulse Rate (60-100 beats/min) 98 4th minute Oxygen Flow Rate (L/min) (L/min) 4 Oxygen Delivery Method Nasal Cannula Pulse Ox (%) 96 Pulse Rate (60-100 beats/min) 98 5th minute Oxygen Flow Rate (L/min) (L/min) 4 Oxygen Delivery Method Nasal Cannula Pulse Ox (%) 97 Pulse Rate (60-100 beats/min) 99 6th minute Oxygen Flow Rate (L/min) (L/min) 4 Oxygen Delivery Method Nasal Cannula Pulse Ox (%) 97 Pulse Rate (60-100 beats/min) 99 Post-test Oxygen Flow Rate (L/min) (L/min) 4 Oxygen Delivery Method Nasal Cannula Pulse Ox (%) 98 Pulse Rate (60-100 beats/min) 88 Dyspnea Megan Scale (0-10) 2 Exertion Megan Scale (6-20) 13 Full Laps Walked 9 Partial Lap, Number of Tiles Walked 0 Total Distance Walked (ft) 531 Interpretation Interpretation: The patient was noted to be 97% on room air, but desaturated to 86% after the first minute of ambulation. The patient was placed on her baseline 4 L nasal cannula and was able to maintain saturations throughout the testing. Patient's peak heart rate was noted to be in 100 bpm. In total, the patient traveled only 531 feet over the course of 6 minutes these findings are consistent with a respiratory limitation exercise tolerance. Recommendations Recommendations: No supplemental oxygen is indicated at rest, but the patient should be using 4 L nasal cannula with any exertion.
== END ==
PROVIDERS: PCP Family Medicine; Referring Provider Internal Medicine Critical Care Medicine; Visit Provider Internal Medicine Critical Care Medicine
DX: J96.11 Chronic respiratory failure with hypoxia (principal)
CPT/HCPCS: 94618

== ENCOUNTER 2021-08-13 11:00 | Outpatient (CLI) | payer MEDICARE, SELFPAY ==
--- NOTE | 2021-08-13 11:04 | RAD_ITS ---
STUDY: XR Knee Complete 4 Views or More 08/13/2021 6:16 PM REASON FOR EXAM: Female, 85 years old. PAIN TECHNIQUE: XR Knee Complete 4 Views or More RIGHT COMPARISON: None FINDINGS: Normal visualized distal femur. Normal visualized proximal tibia and fibula. Normal proximal tibiofibular articulation. Normal medial femorotibial compartment. Normal lateral femorotibial compartment. 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 The soft tissue structures are unremarkable. 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 Electronically Signed: Erick Mcintyre MD at 18:17 EDT ,
[2021-08-13 15:28] LABS: Hematocrit 41.5 % (37-47); Hemoglobin 12.7 g/dL (12.0-15.0); Mean Corp Hgb Conc 30.6 g/dL (32-36); Mean Corpuscular Hgb 28.9 pg (27.0-32.0); Mean Corpuscular Volume 94.3 fL (81-99); Platelet Count 292 K/mm3 (150-450); RBC Distribution Width CV 14.3 % (11.6-14.6); RBC Distribution Width SD 49.2 fl (35.1-43.9); White Blood Count 7.1 K/mm3 (4.4-11.0)
[2021-08-13 15:49] LABS: Vitamin D,25 Hydroxy 48.6 ng/mL
[2021-08-13 15:56] LABS: ALB/GLOB Ratio 0.9 RATIO (0.9-2.4); AST(SGOT) 24 U/L (15-37); Alanine Aminotransfer ALT/SGPT 24 U/L (13-56); Albumin, Serum 3.5 g/dL (3.2-5.0); Alkaline Phosphatase 85 U/L (45-117); Anion Gap 5 (5-15); BUN 15 mg/dL (7-18); BUN/Creat Ratio 15.5 RATIO (10-20); Calcium,Total 9.2 mg/dL (8.5-10.1); Chloride 105 mmol/L (98-107); Creatinine, Serum 0.97 mg/dL (0.55-1.02); EST Glomerular Filtration Rate 58 mL/min (>60); Est Glom Filt Rate - Afr Amer 71 mL/min (>60); Glucose 107 mg/dL (74-106); Microalbumin,Random Urine 5.2 mg/L (NO RANGE EST.); Protein, Total 7.5 g/dL (6.4-8.2); Sodium Level 139 mmol/L (136-145); Thyroid Stim Hormone (TSH) 3.43 uIU/mL (0.358-3.74)
== END 2021-08-13 23:59 | disposition home or self-care (01) ==
LOC: MTLAB 11:02
PROVIDERS: PCP Family Medicine; Referring Provider Family Medicine; Visit Provider Family Medicine
DX: Z00.00 Encounter for general adult medical examination without abnormal findings (principal); J44.9 Chronic obstructive pulmonary disease, unspecified; E55.9 Vitamin D deficiency, unspecified; R79.89 Other specified abnormal findings of blood chemistry; E78.00 Pure hypercholesterolemia, unspecified; M25.561 Pain in right knee; R73.01 Impaired fasting glucose
CPT/HCPCS: 36415; 73564; 80053; 82043; 82306; 84443; 85027

== ENCOUNTER → 2022-08-15 | Outpatient (CLI) | payer MEDICARE, SELFPAY ==
[2022-08-15 12:18] LABS: Hematocrit 43.1 % (37-47); Hemoglobin 13.4 g/dL (12.0-15.0); Mean Corp Hgb Conc 31.1 g/dL (32-36); Mean Corpuscular Volume 96.4 fL (81-99); Mean Platelet Vol. 10.9 fl (6.2-12.0); Platelet Count 228 K/mm3 (150-450); RBC Distribution Width CV 13.5 % (11.6-14.6); RBC Distribution Width SD 47.9 fl (35.1-43.9); Red Blood Count 4.47 M/mm3 (4.2-5.4); White Blood Count 5.8 K/mm3 (4.4-11.0)
[2022-08-15 12:39] LABS: Vitamin D,25 Hydroxy 38.1 ng/mL
[2022-08-15 12:51] LABS: ALB/GLOB Ratio 0.9 RATIO (0.9-2.4); AST(SGOT) 19 U/L (15-37); Alanine Aminotransfer ALT/SGPT 20 U/L (13-56); Albumin, Serum 3.3 g/dL (3.2-5.0); Alkaline Phosphatase 80 U/L (45-117); Anion Gap 2 (5-15); BUN 15 mg/dL (7-18); BUN/Creat Ratio 17.4 RATIO (10-20); Calcium,Total 9.4 mg/dL (8.5-10.1); Chloride 105 mmol/L (98-107); Cholesterol 223 mg/dL (200); Creatinine, Serum 0.86 mg/dL (0.55-1.02); EST Glomerular Filtration Rate 67 mL/min (>60); Est Glom Filt Rate - Afr Amer 81 mL/min (>60); Globulin 3.7 g/dL (2.2-4.2); Glucose 107 mg/dL (74-106); High Density Lipoprotein 68 mg/dL; Sodium Level 136 mmol/L (136-145); Thyroid Stim Hormone (TSH) 3.35 uIU/mL (0.358-3.74); Triglycerides 101 mg/dL; Very Low Density Lipoprotein 20 mg/dL (5-40)
== END | disposition home or self-care (01) ==
LOC: MFPLAB 11:10
PROVIDERS: PCP Family Medicine; Visit Provider Family Medicine
DX: Z13.220 Encounter for screening for lipoid disorders (principal); L40.9 Psoriasis, unspecified; E55.9 Vitamin D deficiency, unspecified; R94.6 Abnormal results of thyroid function studies
CPT/HCPCS: 80053; 80061; 82306; 84443; 85027

== ENCOUNTER → 2023-02-22 | Outpatient (CLI) | payer MEDICARE, SELFPAY ==
[2023-02-22 13:01] LABS: Hematocrit 43.2 % (37-47); Hemoglobin 13.3 g/dL (12.0-15.0); Mean Corp Hgb Conc 30.8 g/dL (32-36); Mean Corpuscular Hgb 29.8 pg (27.0-32.0); Mean Corpuscular Volume 96.9 fL (81-99); Mean Platelet Vol. 11.1 fl (6.2-12.0); Platelet Count 225 K/mm3 (150-450); RBC Distribution Width CV 14.1 % (11.6-14.6); RBC Distribution Width SD 50.3 fl (35.1-43.9); Red Blood Count 4.46 M/mm3 (4.2-5.4); White Blood Count 5.5 K/mm3 (4.4-11.0)
[2023-02-22 13:25] LABS: Vitamin D,25 Hydroxy 70.7 ng/mL
[2023-02-22 13:49] LABS: ALB/GLOB Ratio 0.8 RATIO (0.9-2.4); AST(SGOT) 19 U/L (15-37); Alanine Aminotransfer ALT/SGPT 18 U/L (13-56); Albumin, Serum 3.2 g/dL (3.2-5.0); Alkaline Phosphatase 78 U/L (45-117); Anion Gap 3 (5-15); BUN 15 mg/dL (7-18); BUN/Creat Ratio 19.4 RATIO (10-20); Calcium,Total 9.4 mg/dL (8.5-10.1); Chloride 105 mmol/L (98-107); Cholesterol 224 mg/dL (200); Creatinine, Serum 0.77 mg/dL (0.55-1.02); EST Glomerular Filtration Rate 75 mL/min (>60); Est Glom Filt Rate - Afr Amer 91 mL/min (>60); Globulin 3.8 g/dL (2.2-4.2); Glucose 112 mg/dL (74-106); High Density Lipoprotein 74 mg/dL; Potassium 4.3 mmol/L (3.5-5.1); Sodium Level 138 mmol/L (136-145); T4 Free Direct 0.87 ng/dL (0.76-1.46); Thyroid Stim Hormone (TSH) 3.37 uIU/mL (0.358-3.74); Triglycerides 92 mg/dL; Very Low Density Lipoprotein 18 mg/dL (5-40)
== END | disposition home or self-care (01) ==
LOC: MFPLAB 10:54
PROVIDERS: PCP Family Medicine; Visit Provider Family Medicine
DX: E55.9 Vitamin D deficiency, unspecified (principal); R79.89 Other specified abnormal findings of blood chemistry; L40.9 Psoriasis, unspecified; R73.01 Impaired fasting glucose; Z79.899 Other long term (current) drug therapy
CPT/HCPCS: 36415; 80053; 80061; 82306; 84439; 84443; 85027

== ENCOUNTER → 2024-02-19 | Outpatient (CLI) | payer MEDICARE, SELFPAY ==
[2024-02-19 12:19] LABS: Absolute Lymphocyte Count 1.72 X10^3/uL (0.83-4.51); Absolute Neutrophil Count 3.3 X10^3/uL (2.0-7.7); Basophil# 0.07 X10^3/uL; Basophil% 1.2 % (0-1); Eosinophil# 0.24 X10^3/uL; Hematocrit 41.8 % (37-47); Hemoglobin 12.9 g/dL (12.0-15.0); Lymphocyte # 1.72 X10^3/ul (0.83-4.51); Lymphocyte % 28.4 % (19-41); Mean Corp Hgb Conc 30.9 g/dL (32-36); Mean Corpuscular Hgb 29.6 pg (27.0-32.0); Mean Corpuscular Volume 95.9 fL (81-99); Mean Platelet Vol. 11.1 fl (6.2-12.0); Monocyte# 0.67 X10^3/uL; Monocyte% 11.1 % (0-10); NRBC Flagged by Analyzer 0 % (0-5); Neutrophil # 3.33 X10^3/uL (2.7-7.7); Platelet Count 210 K/mm3 (150-450); RBC Distribution Width CV 13.8 % (11.6-14.6); RBC Distribution Width SD 49.1 fl (35.1-43.9); Red Blood Count 4.36 M/mm3 (4.2-5.4); White Blood Count 6.1 K/mm3 (4.4-11.0)
[2024-02-19 12:44] LABS: Vitamin D,25 Hydroxy 66.6 ng/mL
[2024-02-19 12:54] LABS: ALB/GLOB Ratio 0.8 RATIO (0.9-2.4); AST(SGOT) 18 U/L (15-37); Alanine Aminotransfer ALT/SGPT 16 U/L (13-56); Albumin, Serum 3.3 g/dL (3.2-5.0); Alkaline Phosphatase 91 U/L (45-117); Anion Gap 4 (5-15); BUN 18 mg/dL (7-18); Calcium,Total 9.3 mg/dL (8.5-10.1); Chloride 105 mmol/L (98-107); Cholesterol 216 mg/dL (200); Creatinine, Serum 0.86 mg/dL (0.55-1.02); EST Glomerular Filtration Rate 67 mL/min (>60); Est Glom Filt Rate - Afr Amer 81 mL/min (>60); Globulin 3.9 g/dL (2.2-4.2); Glucose 103 mg/dL (74-106); High Density Lipoprotein 75 mg/dL; Potassium 4.1 mmol/L (3.5-5.1); Protein, Total 7.2 g/dL (6.4-8.2); Sodium Level 139 mmol/L (136-145); Triglycerides 72 mg/dL; Very Low Density Lipoprotein 14 mg/dL (5-40)
== END | disposition home or self-care (01) ==
LOC: MFPLAB 11:00
PROVIDERS: PCP Family Medicine; Visit Provider Family Medicine
DX: J44.9 Chronic obstructive pulmonary disease, unspecified (principal); R79.89 Other specified abnormal findings of blood chemistry; E55.9 Vitamin D deficiency, unspecified; I10 Essential (primary) hypertension
CPT/HCPCS: 36415; 80053; 80061; 82306; 84443; 85025

== ENCOUNTER → 2024-08-28 | Outpatient (CLI) | payer MEDICARE, SELFPAY | END | disposition home or self-care (01) | LOC: MFPLAB 15:26 | PROVIDERS: PCP Family Medicine; Referring Provider Family Medicine; Visit Provider Family Medicine | DX: R79.89 Other specified abnormal findings of blood chemistry (principal) | CPT/HCPCS: 36415; 84439; 84443 ==

== ENCOUNTER → 2025-01-16 | Outpatient (CLI) | payer MEDICARE, SELFPAY ==
[2025-01-16 08:55] VITALS: PULSE 65; PULSE 69; PULSE 73; PULSE 80; PULSE 82; PULSE 83; PULSE 84; PULSE 85; O2SAT 83; O2SAT 86; O2SAT 92; O2SAT 93; O2SAT 94; O2SAT 95
--- NOTE | 2025-01-16 10:06 | CPS ---
PATIENT ARRIVED FOR TESTING ON OWN O2 WITH ROLLATOR DEVICE. SHE WAS PLACED ON ROOM AIR FOR 20 MINUTES PRIOR TO TESTING. PATIENT BEGAN WALK TEST ON ROOM AIR WITHOUT ANY ASSISTIVE DEVICES FOR AMBULATION. HER SPO2 AT 1 MINUTE WAS 83%, AT WHICH TIME A SHORT REST WAS TAKEN TO APPLY HER OWN DEVICE AT 2LPM DEMAND FLOW. AT THIS TIME, SHE BEGAN PUSHING HER ROLLATOR DEVICE THIS IS HOW SHE TRANSPORTS HER O2 DEVICE. SHE ENDED UP ON 3LPM DEMAND FLOW, USING HER ROLLATOR AND COMPLETING 479FT IN THE 6 MINUTE TEST PERIOD. 2 SHORT RESTS WERE TAKEN TO APPLY AND ADJUST O2 FLOW, 1 SHORT BREAK TAKEN FOR INCREASED WOB.
--- NOTE | 2025-01-17 10:35 | WT_ITS ---
PSN 6 Minute Walk Test 6 Minute Walk Test 6 Minute Walk Test: 6 Minute Walk Test PSN:6-Minute Walk Test Start: 01/16/25 08:55 Freq: Status: Active Protocol: [id number] Document 01/16/25 08:55 [facility] (Rec: 01/16/25 08:59 [facility] [id number]) 6 Minute Walk Test Date Performed 01/16/25 Time Performed 08:30 Height 5 ft 6 in Weight: 166 lb Weight in Pounds 166.[address]: Cornelius Beasley Assistive device Walker used: Pre-test Oxygen Delivery Room Air Method Pulse Ox (%) 92 Pulse Rate (60-100 65 beats/min) Dyspnea Megan Scale ( 2 0-10) 1st minute Oxygen Delivery Room Air Method Pulse Ox (%) 83 Pulse Rate (60-100 73 beats/min) Dyspnea Megan Scale ( 4 0-10) Number of Rests 1 Taken Reported Symptoms Cyanotic,Increased Work of Breathing 2nd minute Oxygen Flow Rate (L/ 2 min) (L/min) Oxygen Delivery Nasal Cannula Method Pulse Ox (%) 86 Pulse Rate (60-100 85 beats/min) Dyspnea Megan Scale ( 4 0-10) Number of Rests 1 Taken Reported Symptoms Increased Work of Breathing 3rd minute Oxygen Flow Rate (L/ 3 min) (L/min) Oxygen Delivery Nasal Cannula Method Pulse Ox (%) 92 Pulse Rate (60-100 83 beats/min) Dyspnea Megan Scale ( 3 0-10) Number of Rests 0 Taken Reported Symptoms Increased Work of Breathing 4th minute Oxygen Flow Rate (L/ 3 min) (L/min) Oxygen Delivery Nasal Cannula Method Pulse Ox (%) 92 Pulse Rate (60-100 80 beats/min) Dyspnea Megan Scale ( 3 0-10) Number of Rests 1 Taken Reported Symptoms Increased Work of Breathing 5th minute Oxygen Flow Rate (L/ 3 min) (L/min) Oxygen Delivery Nasal Cannula Method Pulse Ox (%) 93 Pulse Rate (60-100 82 beats/min) Dyspnea Megan Scale ( 3 0-10) Number of Rests 0 Taken Reported Symptoms Increased Work of Breathing 6th minute Oxygen Flow Rate (L/ 3 min) (L/min) Oxygen Delivery Nasal Cannula Method Pulse Ox (%) 94 Pulse Rate (60-100 84 beats/min) Dyspnea Megan Scale ( 3 0-10) Number of Rests 0 Taken Reported Symptoms Increased Work of Breathing Post-test Oxygen Flow Rate (L/ 3 min) (L/min) Oxygen Delivery Nasal Cannula Method Pulse Ox (%) 95 Pulse Rate (60-100 69 beats/min) Dyspnea Megan Scale ( 2 0-10) Full Laps Walked 8 Partial Lap, Number 7 of Tiles Walked Total Distance 479 Walked (ft) 01/16/25 10:06 Cardiopulmonary Services by Lenora Ham PATIENT ARRIVED FOR TESTING ON OWN O2 WITH ROLLATOR DEVICE. SHE WAS PLACED ON ROOM AIR FOR 20 MINUTES PRIOR TO TESTING. PATIENT BEGAN WALK TEST ON ROOM AIR WITHOUT ANY ASSISTIVE DEVICES FOR AMBULATION. HER SPO2 AT 1 MINUTE WAS 83%, AT WHICH TIME A SHORT REST WAS TAKEN TO APPLY HER OWN DEVICE AT 2LPM DEMAND FLOW. AT THIS TIME, SHE BEGAN PUSHING HER ROLLATOR DEVICE THIS IS HOW SHE TRANSPORTS HER O2 DEVICE. SHE ENDED UP ON 3LPM DEMAND FLOW, USING HER ROLLATOR AND COMPLETING 479FT IN THE 6 MINUTE TEST PERIOD. 2 SHORT RESTS WERE TAKEN TO APPLY AND ADJUST O2 FLOW, 1 SHORT BREAK TAKEN FOR INCREASED WOB. Initialized on 01/16/25 10:06 - END OF NOTE Interpretation Interpretation: The patient ambulated 479 feet over the course of 6 minutes beginning on room air with the use of a walker. Pretesting oxygen saturation was noted to be 92% on room air. With ambulation, the patient desaturated on several occasions, requiring 3 L/min of pulsed dose supplemental oxygen to maintain appropriate saturations. Recommendations Recommendations: 3 L/min of pulsed dose supplemental oxygen should utilized with exertion.
== END | disposition home or self-care (01) ==
LOC: PSN 08:08
PROVIDERS: PCP Family Medicine; Referring Provider Internal Medicine Critical Care Medicine; Visit Provider Internal Medicine Critical Care Medicine
DX: J96.11 Chronic respiratory failure with hypoxia (principal)
CPT/HCPCS: 94618